=== PATIENT | female | born 1970 | race Caucasian/White ===

== ENCOUNTER 2017-01-08 06:11 | Day surgery (SDC) | payer OTHER ==
[~2017-01-08] VITALS: Ht 167.6 cm; Wt 77.1 kg
[~2017-01-08 06:11] MED LIST: LISINOPRIL-HCT1 EAC1 PO; MICROGESTIN FE1 EACH PO
--- NOTE | 2017-01-09 11:31 | OR ---
[facility] [address], [place] [address] Signed DATE OF PROCEDURE: 01/08/17 PREOPERATIVE DIAGNOSES Constipation. Right lower quadrant abdominal pain. Bloating. POSTOPERATIVE DIAGNOSES Long redundant colon. Mild melanosis coli. PROCEDURES Colonoscopy with random cold biopsies up to hepatic flexure. ESTIMATED BLOOD LOSS: None. INDICATIONS Margaux is a 46-year-old female who said she did fine with bowel movements into her mid to late 20s. After her 2 sons were born vaginally, she started having trouble. She had an episiotomy both times. She has had the 2nd episode was a grade 3 tear, but she can't remember for the 1st time. She has had constipation ever since. Apparently, someone told her the tissue between the vagina and the rectum is quite thin. She thinks it bulges in that area when she goes to the bathroom. She said t h e stool was often very hard like pellets. She can have pain in the right lower quadrant associated with bloating as well. She also lacks the urge to go. She said if she notices the urge to go, she has to go directly to the bathroom or could be a day or tw o before she has the urge to go again. She has been trying Metamucil with moderate results along with probiotics, Dulcolax, Grover, and Milk of Magnesia and others. Since it has been an ongoing problem, she wanted to have it looked into. In the office I gave her a pamphlet on colonoscopy. We looked at that together along with the risks including, but not limited to gas bloating, crampy abdominal pain, bleeding, perforation requiring surgery, and missed diagnosis. We also discussed the need for IV conscious sedation. She had expressed understanding and wished to proceed. In addition, we had ordered a Sitzmark test. She will be doing that shortly. PROCEDURE NOTE Margaux was taken into our endoscopy suite and placed in the left lateral decubitus position. She was given 15 mg of Versed and 300 mcg of fentanyl in divided doses. She has a long redundant colon with a lot of resistance to passage of the scope. It took a substantial amount of time in abdominal compression and rotating Margaux into the supine position in order to get the scope to the hepatic flexure, to what we thought was the hepatic flexure. Amazingly, she was awake during much of it, talking to us, looking at Electronically Signed By: CHEO PEÑA MD 01/09/17 1131 PATIENT NAME: MARGAUX MUELLER OPERATIVE REPORT DATE OF : 70 PHYSICIAN: CHEO PEÑA MD REPORT #: [id number] REPORT IS CONFIDENTIAL AND NOT TO BE RELEASED WITHOUT AUTHORIZATION [facility] [address], [place] [address] Signed the TV screen and so forth. As a result, she would be much better served with Propofol in th e future. Her prep was quite excellent. We finally could not advance the scope any further. We had to withdrawal the scope slowly. We could see mild tiger striping in the colon consistent with mild melanosis coli. We went ahead and took several random col d biopsies for pathologic review. There was no diverticulosis, no evidence of any strictures. The rectum was unremarkable. Upon retroflexion of scope, there was no additional pathology noted above the anal canal. On digital rectal exam, she has a full circumference of sphincter muscles and they appear to be of sufficient strength. After this, the gas was suctioned out and the colonoscope removed. Margaux tolerated the procedure quite well. RECOMMENDATIONS I will see Margaux back in my office after she completes her Sitzmark test. She might consider a barium enema. In the future, she will need Propofol for sedation. MD DEVON Muñoz/Den /[id number] cc: CIELO Butts Electronically Signed By: CHEO PEÑA MD 01/09/17 1131 PATIENT NAME: MARGAUX MUELLER OPERATIVE REPORT DATE OF : 70 PHYSICIAN: CHEO PEÑA MD REPORT #: [id number] REPORT IS CONFIDENTIAL AND NOT TO BE RELEASED WITHOUT AUTHORIZATION
== END 2017-01-08 08:49 | disposition home or self-care (01) ==
LOC: DS 06:11
PROVIDERS: Colon & Rectal Surgery
PROC: 0DBE8ZX Excision of Large Intestine, Via Natural or Artificial Opening Endoscopic, Diagnostic (ICD-10-PCS; principal; 2017-01-08 06:45)
DX: K63.89 Other specified diseases of intestine (principal); I10 Essential (primary) hypertension; E78.5 Hyperlipidemia, unspecified; Z90.49 Acquired absence of other specified parts of digestive tract; Z98.890 Other specified postprocedural states
CPT/HCPCS: 84703; J2250; J3010; J7120

== ENCOUNTER 2024-05-26 04:40 | Inpatient (IN) | payer OTHER ==
[2024-05-26] VITALS (7 sets, daily range): BP systolic 131–137; BP diastolic 67–76
[~2024-05-26] VITALS: Ht 167.6 cm; Wt 82.9 kg
[~2024-05-26 04:40] MED LIST changes: +CELECOXIB200 MG PO; +HYDROCODON-ACE1 EA10 PO; +LIPITOR40 MG PO; +MICROGESTIN1 EACH PO
[2024-05-26] MEDS ORDERED: AUROVELA 21 1.1 EACH PO (04:57)
[2024-05-26] MEDS ORDERED: VENTOLIN HFA18 GM INH ×2 (04:58)
[2024-05-26] MEDS ORDERED: ALBUTEROL/IPRATROPIUM 3 ML NEB INH ONE (05:00)
[2024-05-26] MEDS ORDERED: methylPREDNISolone SOD SUCC 125 MG/2 ML VIAL IV ONE (05:00)
[2024-05-26 05:12] LABS: CORONAVIRUS COVID-19 AG NEGATIVE (NEGATIVE); INFLUENZA A AG NEGATIVE (NEGATIVE); INFLUENZA B AG NEGATIVE (NEGATIVE)
[2024-05-26] MEDS ORDERED: LACTATED RINGER'S 1,000 ML IV ONE (05:15)
[2024-05-26 05:27] LABS: HEMOGLOBIN 13.4 g/dL (12.0-18.0); MCHC 34.4 g/dl (30-36); PLATELET COUNT 851 K/uL (140-440); RBC 4.19 M/ul (4.3-5.7); RDW 13.2 (10.5-15.0)
[2024-05-26] MEDS ORDERED: CEFTRIAXONE/SODIUM CHLORIDE 2 GM/100 ML PIGGYBACK IV ONE (05:30)
[2024-05-26] MEDS ORDERED: ALBUTEROL SULFATE 0.5% 2.5 MG/0.5 ML VIAL INH ONE (05:30)
[2024-05-26 05:39] LABS: BASOPHILS, MANUAL DIFF 1; LYMPHOCYTES, MANUAL DIFF 5; MONOCYTES, MANUAL DIFF 4; NEUTROPHILS, MANUAL DIFF 90
[2024-05-26 05:46] LABS: ALBUMIN 2.5 g/dL (3.4-5.0); ALBUMIN/GLOBULIN RATIO 0.44 (1.1-2.4); ANION GAP 13.3 (7-21); BILIRUBIN, TOTAL 0.9 ng/dL (0.2-1.0); BUN/CREATININE RATIO 10.11 (6.0-28.6); CALCIUM 9.4 mg/dL (8.5-10.1); CREATININE, SERUM 0.89 mg/dL (0.55-1.02); POTASSIUM 3.3 mmol/L (3.5-5.1); PROTEIN, TOTAL 8.2 g/dL (6.4-8.2)
[2024-05-26] MEDS ORDERED: DOXYCYCLINE HY100 MG PO (05:53)
[2024-05-26] MEDS ORDERED: PREDNISONE20 MG PO (05:53)
[2024-05-26 05:55] LABS: LACTIC ACID, BLOOD 2.1 mmol/L (0.4-2.0)
[2024-05-26] MEDS ORDERED: POTASSIUM CHLORIDE 10 MEQ TABCR PO ONE (06:15)
[2024-05-26] MEDS ORDERED: INHALER, ASSIST DEVICES 1 EACH SPACER MISC ONE (07:00)
[2024-05-26 07:51] LABS: LACTIC ACID, BLOOD 7.4 mmol/L (0.4-2.0)
[2024-05-26] MEDS ORDERED: SODIUM CHLORIDE 0.9% 500 ML IV PRN (08:30)
[2024-05-26] MEDS ORDERED: SODIUM CHLORIDE 0.9% 1,000 ML IV ONE (08:30)
[2024-05-26] MEDS ORDERED: AZITHROMYCIN/DEXTROSE 500 MG/250 ML PIGGYBACK IV ONE (08:30)
[2024-05-26] MEDS ORDERED: ENOXAPARIN SODIUM 40 MG/0.4 ML SYR SUB-Q SCH (09:00)
[2024-05-26] MEDS ORDERED: ACETAMINOPHEN 325 MG TAB PO PRN (09:00)
[2024-05-26] MEDS ORDERED: ondansetron HCL 4 MG/2 ML VIAL IV PRN (09:00)
[2024-05-26] MEDS ORDERED: LACTATED RINGER'S 1,000 ML IV SCH (09:00)
[2024-05-26] MEDS ORDERED: ALBUTEROL SULFATE 0.083% 3 ML VIAL INH PRN (09:00)
[2024-05-26] MEDS ORDERED: PROCHLORPERAZINE EDISYLATE 10 MG/2 ML VIAL IV PRN (09:00)
[2024-05-26] MEDS ORDERED: ALBUTEROL/IPRATROPIUM 3 ML NEB INH PRN (09:00)
--- NOTE | 2024-05-26 09:50 | NUR ---
PT NOT AVAILABLE FOR VISIT. PROVIDED PRAYER.
[2024-05-26] MEDS ORDERED: LISINOPRIL-HCT1 EAC2 PO (10:17)
--- NOTE | 2024-05-26 10:24 | NUR ---
PT RESTING IN BED WITH SIGNIFICANT OTHER AT BEDSIDE. PT HAS IV IN R AC WITH FLUID BOLUS INFUSING TO GRAVITY. PT REPORTS NO PAIN AT THIS TIME, NO NAUSEA. PT HAS PRODUCTIVE, HARSH COUGH OF THICK, GREEN SPUTUM. LUNG SOUNDS ARE TIGHT IN BUL, COARSE AND DIMINISHED IN BLL. PT DENIES SHORTNESS OF BREATH BUT STATES "MY BREATHS JUST FEEL SHALLOW. INEFFECTUAL." CPOX IN PLACE AT BEDSIDE SUSTAINS SPO2>96% ON ROOM AIR. PT ALERT AND ORIENTED, CONVERSING PLEASANTLY IN BETWEEN COUGHING EPISDOES. PT DOES REPORT SHE HAS NOT HAD A BOWEL MOVEMENT X1 WEEK BUT STATES THIS IS NORMAL FOR HER AND SHE DOES NOT WANT ANY INTERVENTIONS. HER ABDOMEN IS SOFT AND NON-TENDER TO PALPATION, BOWEL TONES ARE ACTIVE IN ALL FOUR QUADRANTS. PT ADMISSION COMPLETE AT THIS TIME. PT AMBULATES INDEPENDENTLY TO RESTROOM AND VOIDS CLEAR, YELLOW URINE. PT RETURNS TO BED. THIS RN ATTEMPTS TO START IVs AND IS NOT SUCCESSFUL. [employer] SHWETHA HALEY CALLED AND ARRIVES TO FLOOR AND START AN IV AT THIS TIME. CALL LIGHT IN REACH, PT PROVIDED WITH FRESH WATER AND HAS NO REQUESTS AT THIS TIME.
--- NOTE | 2024-05-26 10:40 | NUR ---
[facility]SA SWAB COLLECTED AND SENT TO LAB AT THIS TIME.
--- NOTE | 2024-05-26 10:45 | NUR ---
NOTIFIED OF CRITICAL LAB VALUE OF LACTIC ACID OF 7.8. IS PUTTING IN NEW ORDERS AT THIS TIME.
--- NOTE | 2024-05-26 11:20 | NUR ---
[employer] COUNSELOR SHWETHA HALEY SUCCESSFULL PLACES IV. VASCULAR ACCESS CHARTED FOR SOFTWARE CLIENT ARCHITECT.
[2024-05-26 11:55] LABS: BILIRUBIN, URINE NEGATIVE (negative); BLOOD/HGB, URINE NEGATIVE (Negative); KETONE, URINE TRACE (Negative); LEUK ESTERASE, URINE NEGATIVE (negative); NITRITE, URINE NEGATIVE (negative); PH, URINE 5.5 (5-7)
--- NOTE | 2024-05-26 11:58 | NUR ---
PATIENT IN BED AT THIS TIME. MFT ASSISTED PATIENT TO BATHROOM AND THEN BACK TO BED. MFT SENT URINE OFF TO LAB AND NOTIFIED RN. CALL LIGHT WITHIN REACH, NO FURTHER NEEDS AT THIS TIME.
[2024-05-26] MEDS ORDERED: PHARMACY RENAL DOSE ADJUSTMENT 1 DOSE MISC PO SCH (12:00)
[2024-05-26] MEDS ORDERED: ADVIL200 MG PO (12:08)
[2024-05-26] MEDS ORDERED: CODEINE-GUAIFE120 ML PO (12:08)
[2024-05-26] MEDS ORDERED: TYLENOL325 MG PO (12:09)
--- NOTE | 2024-05-26 12:09 | NUR ---
MED REC COMPLETE
[2024-05-26] MEDS ORDERED: GUAIFENESIN/DEXTROMETHORPHAN 5 ML SYRUP PO PRN (12:15)
--- NOTE | 2024-05-26 12:22 | NUR ---
MEDICATION ADMINISTERED, SEE MAR. PT RESTING IN BED AT THIS TIME ALERT AND AWAKE, TRYING TO FIGURE OUT WHAT SHE WOULD LIKE TO WATCH ON TELEVISION. PTs ELLI HAS STEPPED OUT AT THIS TIME, REPORTS HE WILL RETURN LATER. PT HAS NO REQUESTS, CALL LIGHT IN REACH.
--- NOTE | 2024-05-26 13:15 | NUR ---
INTO SEE PATIENT. PERSONAL INFORMATION REVIEWED. PATIENT LIVES IN [place] WITH SPOUSE. PATIENT HAS A HOUSE WITH NO STEPS TO GET INTO THE RESIDENCE. PATIENT HAS NO PROBLEMS GETTING INTO THE HOUSE OR OUT OF BED. PATIENT HAS WALKER, CANE AND WHEELCHAIR BUT DOES NOT NEEDS THEM. NO OXYGEN OR CPAP AT HOME. PATIENT SPOUSE TASH TO TAKE HOME AT DISCHARGE. DENIES ANY DIFFCULTY PAYING UTILITIES OR OBTAINING FOOD. PATIENT DOES NOT NEED ANYTHING FROM AT THIS TIME. WILL FOLLOW UP NEEDED.
--- NOTE | 2024-05-26 13:20 | NUR ---
CALL LIGHT ANSWERED. PATIENT IVF RESTARTED AFTER RETURNING FROM CT. IV SITE WNL. NOTED VOID IN HAT. AMOUNT RECORDED. PATIENT WITH NO FURTHER NEEDS. CALL LIGHT WITHIN REACH.
--- NOTE | 2024-05-26 13:51 | NUR ---
PT RESTING IN BED AFTER RETURNING FROM IMAGING. ICE WATER AND ORANGE JUICE PROVIDED. PT HAS NO OTHER REQUESTS AT THIS TIME, ELLI ALONSO PRESENT AT BEDSIDE. CALL LIGHT IN REACH.
[2024-05-26] MEDS ORDERED: CEFEPIME HCL/D5W 1 GM/100 ML PIGGYBACK IV SCH (15:00)
--- NOTE | 2024-05-26 16:01 | NUR ---
MEDICATION ADMINISTERED, SEE JUL. PT RESTING IN BED WITHOUT COVERS, REPORTS SHE FEELS WARM. PT IS COMPLAINING OF HEADACHE R/T REGULAR COUGHING, /. PRN PAIN MEDICATION ADMINISTERED. RESPIRATORY THERAPY IS ALSO PRESENT IN ROOM AT THIS TIME, PT IS RECEIVING BREATHING TREATMENT. PT USES ACAPELLA AT BEDSIDE X10, EXPECTORATES THICK, GREEN SECRETIONS INTO EMESIS BAG. PT REPORTS NO NAUSEA OR OTHER PAIN OR DISCOMFORT. PT EDUCATED ON MEDICATION ADMINSTRATION AND WALKING INDEPENDENTLY IN ROOM, PT VERBALIZES UNDERSTANDING. IVs FLUSH WNL. PTs FIANCE REMAINS IN ROOM THROUGHOUT ASSESSMENT. AGNIESZKA COSME RETRIVES FRESH ICE WATER. PT HAS NO OTHER REQUESTS AT THIS TIME, CALL LIGHT IN REACH.
--- NOTE | 2024-05-26 18:18 | NUR ---
PT RESTING IN BED WATCHING TELEVISION. IVF INFUSING WNL, IV ABX INFUSING WNL. PT BEDSIDE TABLE GARBAGE BAG PROVIDED FOR TISSUES. PT HAS NO OTHER REQUESTS AT THIS TIME, CALL LIGHT IN REACH.
--- NOTE | 2024-05-26 18:39 | NUR ---
MD IN TO VISIT PT. MD GIVES VERBAL ORDER FOR COUGH DROPS AT THIS TIME. PT WITH NO REQUESTS, CALL LIGHT IN REACH.
[2024-05-26] MEDS ORDERED: MENTHOL/CETYLPYRD CL 1 LOZ LOZENGE PO PRN (18:45)
--- NOTE | 2024-05-26 19:35 | NUR ---
RECEIVED REPORT FROM SHWETHA RICKS. PT RESTING COMFORTABLY IN BED, SPOUSE AT BEDSIDE. DENIES NEEDS OR CONCERNS AT THIS TIME.
--- NOTE | 2024-05-26 19:45 | NUR ---
NEW BAG LR INFUSING, FRESH ICE WATER GIVEN; VS COMPLETED, AND ENTERED. TASH, PT FAMILY AT BEDSIDE. NO OTHER NEEDS AT THIS TIME.
[2024-05-26] MEDS ORDERED: ALBUTEROL/IPRATROPIUM 3 ML NEB INH SCH (20:00)
--- NOTE | 2024-05-26 20:15 | NUR ---
PT RESTING IN BED COMFORTABLY. ORIENTED X 4. VSS. REPORTS HEADACHE 5/10 R/T COUGHING, TOO EARLY FOR PRN TYLENOL. LS COARSE W/ A FEW EXP WHEEZES. SOME SOB. FREQUENT HACKING, NON-PRODUCTIVE COUGH. CPOX IN PLACE, RA O2 SATS 94%. HRR. BTA, LBM 05/19-PT REPORTS NORMAL PATTERN FOR BM AND IS NOT CONCERNED. VOIDS WNL. LFA IV INFUSING LR @ 125MLS/HR. ENC CONTINUED PO FLUIDS. PRN COUGH MED AND LOZENGES PROVIDED. DENIES ANY FURTHER NEEDS. SPOUSE AT BEDSIDE. CALL LIGHT WITHIN REACH.
[2024-05-26] MEDS ORDERED: MELATONIN 3 MG TAB PO PRN (21:00)
[2024-05-26] MEDS ORDERED: ATORVASTATIN 40 MG TAB PO SCH (21:00)
--- NOTE | 2024-05-26 22:42 | NUR ---
PT AWAKE, SLEEPING BETWEEN CARE. DENIES NEEDS.
[2024-05-27] VITALS (8 sets, daily range): BP systolic 113–141; BP diastolic 64–86
--- NOTE | 2024-05-27 00:12 | NUR ---
SLEEPING SOUNDLY. BREATHING EVEN AND UNLABORED. IVF INFUSING.
--- NOTE | 2024-05-27 02:15 | NUR ---
PT AWAKE, SLEEPING BETWEEN CARE. IV ATB AND PRN COUGH MED ADMINISTERED PER EMAR. DENIES ANY OTHER NEEDS.
--- NOTE | 2024-05-27 04:28 | NUR ---
PT SLEEPING SOUNDLY. BREATHING EVEN AND UNLABORED. CPOX 94% ON RA. SPOUSE ASLEEP AT BEDSIDE.
[2024-05-27 05:28] LABS: HEMATOCRIT 31.2 % (35.0-50.0); HEMOGLOBIN 10.5 g/dL (12.0-18.0); MCH 31.2 (27-36); MCHC 33.6 g/dl (30-36); MCV 92.8 fl (81-99); PLATELET COUNT 698 K/uL (140-440); RBC 3.37 M/ul (4.3-5.7); RDW 13.4 (10.5-15.0)
[2024-05-27 05:40] LABS: LYMPHOCYTES, MANUAL DIFF 8; MONOCYTES, MANUAL DIFF 3; NEUTROPHILS, MANUAL DIFF 89
[2024-05-27 05:41] LABS: ANION GAP 9.8 (7-21); CALCIUM 8.3 mg/dL (8.5-10.1); CREATININE, SERUM 0.7 mg/dL (0.55-1.02); MAGNESIUM 2.1 mg/dL (1.8-2.4); POTASSIUM 2.8 mmol/L (3.5-5.1)
--- NOTE | 2024-05-27 06:21 | NUR ---
PT AWAKE, REPORTS FEELING BETTER. LS RHONCHI T/O. REMAINS ON RA, O2 SAT 93%. DENIES SOB AT REST. PT REQUESTED PRN COUGH MED.
--- NOTE | 2024-05-27 07:08 | NUR ---
REPORT RECEIVED FROM SHWETHA LEMUS. PT RESTING IN BED AWAKE AND ALERT WATCHING TELEVISION, ANANDASALINA PRESENT ON COUCH. PT EXPRESSES INTEREST IN GOING HOME TODAY, BUT NO REQUESTS AT THIS TIME. CALL LIGHT IN REACH, ELLI REMAINS RESTING ON COUCH.
[2024-05-27] MEDS ORDERED: POTASSIUM CHLORIDE 40 MEQ,LIDOCAINE HCL 1% 40 MG in DEXTROSE 5% 250 ML IV ONE (09:00)
[2024-05-27] MEDS ORDERED: POLYETHYLENE GLYCOL 3350 1 PACKET PO PRN (09:00)
[2024-05-27] MEDS ORDERED: BENZONATATE 100 MG CAP PO PRN (09:00)
[2024-05-27] MEDS ORDERED: AZITHROMYCIN 250 MG TAB PO SCH (09:00)
[2024-05-27] MEDS ORDERED: POTASSIUM CHLORIDE 10 MEQ TABCR PO ONE (09:00)
[2024-05-27] MEDS ORDERED: CEFTRIAXONE/SODIUM CHLORIDE 2 GM/100 ML PIGGYBACK IV SCH (09:00)
--- NOTE | 2024-05-27 09:00 | NUR ---
INTO SEE PATIENT. PATIENT STATES "I FEEL MUCH BETTER AND HAD A GOOD NIGHT." PATIENT DOES NOT NEED ANYTHING FROM CASE MANAGEMENT AT THIS TIME. FRIEND AT BEDSIDE.
--- NOTE | 2024-05-27 09:06 | NUR ---
IN TO ADMINISTER MEDICATION, SEE MAR. PTs L FOREARM IV IS INFILTRATED AT THIS TIME, UNABLE TO FLUSH. IV REMOVED. PTs R AC IV IS LEAKING AND PT IS COMPLAINING OF PAIN AT THE SITE. PT SHOWERS AND HAS COUGHING EPISODE X20 MINUTES. CHINO FROM RT ARRIVES AND ADMINISTERS PRN NEB TREATMENT. CPOX IN PLACE, SPO2 DECREASES TO 90% DURING COUGHING EPISODES. PT LUNG SOUNDS CLEAR TO BUL, COARSE AND DIMINISHED IN BLL. PT REPORTS SHORTNESS OF BREATH WHILE SHOWERING AND DURING COUGHING EPISODES. SPO2 INCREASES TO 92% AT REST ON ROOM AIR. PT HR IS REGULAR BUT TACHYCARDIC AT 107, INCREASING TO 120s DURING COUGHING EPISODES. PT CONTINUES TO STATE SHE IS EAGER TO GO HOME. SN SUZAN ATTEMPTING NEW IV START. IV START UNSUCCESSFUL BY AND THIS RN. PT REPORTS NO SHORTNESS OF BREATH AT THIS TIME WHILE RESTING IN BED WITH HOB ELEVATED. NO OTHER REQUESTS, CALL LIGHT IN REACH, IN ROOM.
[2024-05-27 10:16] LABS: PROCALCITONIN 0.12 ng/mL (())
--- NOTE | 2024-05-27 10:18 | NUR ---
UR CLINICAL REVIEW[place] [facility] [place] [facility]/SEPSIS [facility] 05/26/24 @ 0904 ORDER MATCHES REG AUTH PENDING, WILL SEND CLINICALS IF REQUESTED. PLAN TO DC WHEN MEDICALLY CLEARED. 05/29/24
--- NOTE | 2024-05-27 10:35 | NUR ---
UR CLINICAL REVIEW: [facility] FOR TRIMALLEOLAR ANKLE FRACTURE AND UTI MEDICARE INPT 05/26/24 @ 1048 ORDER MATCHES REG NO AUTH REQUIRED PER MEDICARE RULES DC PLAN PENDING FURTHER EVAL POST OPERATIVELY.
--- NOTE | 2024-05-27 10:35 | NUR ---
RT IN WITH PT WITH BREATHING TX AND IPV MACHINE. CPOX AT BEDSIDE. PT SUSTAINS SPO2 OF 93% AT THIS TIME. FIANCE IN ROOM ON RECLINER.
--- NOTE | 2024-05-27 10:36 | NUR ---
PT REPORTS SHE HAD A LARGE, FORMED BOWEL MOVEMENT AT THIS TIME.
--- NOTE | 2024-05-27 12:40 | NUR ---
PT REPORTING HEADACHE AND MUSCULAR CHEST PAIN R/T EXCESS COUGHING, PAIN LEVEL 6/10. PRN PAIN MEDICATION PROVIDED, WARM BLANKET PROVIDED TO HOLD AGAINST CHEST. FRESH ICE WATER AND ORANGE JUICE ALSO PROVIDED. PT RESTING IN BED WITH HOB ELEVATED, NO COUGHING HEARD BY THIS RN DURING INTERACTION. IV ABX AND IV POTASSIUM INFUSING WNL TO R AC IV. PT EXPRESSES DESIRE TO GO HOME TODAY. PRESENT ON RECLINER THROUGHOUT. NO OTHER REQUESTS AT THIS TIME, CALL LIGHT IN REACH.
--- NOTE | 2024-05-27 13:34 | NUR ---
PT CURRENTLY RESTING IN BED, AT BEDSIDE. IV POTASSIUM INFUSION COMPLETE. IV ABX STARTED. PT DENIES ANY NEEDS AT THIS TIME. SATS 92% ON RA. CALL LIGHT WITHIN REACH, ALL PT CARE NEEDS MET
--- NOTE | 2024-05-27 14:01 | NUR ---
MD GIVES VERBAL ORDER TO RECHECK POTASSIUM LEVELS, BMP ORDER PLACED.
--- NOTE | 2024-05-27 14:02 | NUR ---
DISCUSSED PLAN OF CARE WITH MD AND PTs DESIRE TO GO HOME TODAY. MD ORDERS POTASSIUM RECHECK, DEFERS CARE TO ONCOMING MD AT THIS TIME. RT ALSO AGREES TO DISCHARGE TODAY.
--- NOTE | 2024-05-27 14:08 | NUR ---
PT UPDATED ON PLAN OF CARE, VERBALIZES UNDERSTANDING. LAB ARRIVES TO DRAW SAMPLE. NO REQUESTS AT THIS TIME, CALL LIGHT IN REACH.
--- NOTE | 2024-05-27 14:21 | NUR ---
MEDICATION ADMINISTERED, SEE MAR. PT RESTING IN BED WATCHING TELEVISION. IV IN R AC FLUSHES WNL. PT LUNG SOUNDS CLEAR IN BUL, DIMINISHED IN RUL AND CELESTE, CRACKLES TO RLL. PT REPORTS NO SHORTNESS OF BREATH, CPOX AT BEDSIDE SUSTAINS SPO2>94% ON RA FOR ENTIRETY OF VISIT. NO REQUESTS AT THIS TIME, CALL LIGHT IN REACH.
[2024-05-27 14:25] LABS: ANION GAP 9.7 (7-21); BUN/CREATININE RATIO 5.81 (6.0-28.6); CALCIUM 8.9 mg/dL (8.5-10.1); CREATININE, SERUM 0.86 mg/dL (0.55-1.02); POTASSIUM 3.7 mmol/L (3.5-5.1)
[2024-05-27] MEDS ORDERED: BENZONATATE100 MG PO (15:57)
[2024-05-27] MEDS ORDERED: LEVOFLOXACIN750 MG PO (15:58)
[2024-05-27 16:47] LABS: HIV 1,2 COMBO ANTIGEN/ANTIBODY Negative (Negative)
== END 2024-05-27 16:25 | disposition home or self-care (01) | DRG 871 ==
LOC: ED 04:40 → MS 09:13
PROVIDERS: Internal Medicine; ADMIT Student in an Organized Health Care Education/Training Program; ATTEND Student in an Organized Health Care Education/Training Program
DX: A41.9 Sepsis, unspecified organism (principal); J18.9 Pneumonia, unspecified organism; E87.20 Acidosis, unspecified; R65.20 Severe sepsis without septic shock; E87.6 Hypokalemia; I10 Essential (primary) hypertension; J45.909 Unspecified asthma, uncomplicated; Z79.899 Other long term (current) drug therapy; E78.00 Pure hypercholesterolemia, unspecified
CPT/HCPCS: 36415; 71045; 74177; 80048; 80053; 81003; 83036; 83605; 83735; 84703; 85025; 87040; 94640; 94644; 94664; 94667; 94668; 94760; 94762; 96365; 96375; 99285-25; A9270; J0456; J0692; J0696; J1650; J2919; J3480; J3490; J7030; J7040; J7060; J7121; Q9967